=== PATIENT | female | born 1945 | race Caucasian/White ===

== ENCOUNTER → 2018-07-19 | Outpatient (CLI) | payer MEDICARE, OTHER ==
[~2018-07-19] MED LIST: BYDUREON P2 MG/0.65 SC; CALCIUM 500 +1 EAC2 PO; CINNAMON CAP PO; CLON.1 PO; COQ10-VIT E 101 EACH PO; CYCL10 PO; Cinnamon500 MG; ESTRADIOL; FURO20 PO; Fish Oil 10001000 MG PO; GLIM2 PO; GLYMET5 PO; HYDACE5325 PO; HYDACE7.5 PO; HYDCHL25 PO; HYDR-86 PO; LISI5 PO; LOSA50 PO; METF500 PO; MULTI-VITAMIN1 EACH PO; MULVITMIND PO; NAPR250 PO; NAPR500 PO; OMEG1CAP30 PO; OSTERA TABLET1 EACH PO; OXYACE5T PO; PIOG45 PO; POTCIT10 PO; PRAV20 PO; PROG100 PO; PROM25 PO; RXOXYACE PO; [UNRECOGNIZED DRUG - CODE] BOTHEYES
== END | disposition home or self-care (01) ==
LOC: LAB SHORT 08:11 → PLD 08:11
DX: Z01.812 Encounter for preprocedural laboratory examination (principal); D22.39 Melanocytic nevi of other parts of face; C43.9 Malignant melanoma of skin, unspecified; L57.0 Actinic keratosis
CPT/HCPCS: 88305

== ENCOUNTER 2021-04-13 08:17 | Day surgery (SDC) | payer OTHER ==
[~2021-04-13] VITALS: Ht 167.6 cm; Wt 100.9 kg
--- NOTE | 2021-04-13 09:05 | NUR ---
Ambulatory in [facility] warming gown applied. Patient states colon prep results clear. History, Chart, Medications and Allergies reviewed before start of procedure.Lungs clear T/O to Auscultation. Patient confirms NPO status and agrees with scheduled surgery. Pre-Op teaching done. Pt verbalizes understanding. Patient States Post-Procedure ride home has been arranged.
--- NOTE | 2021-04-13 09:33 | NUR ---
04/13/21 0933 Estrella García History, Chart, Medications and Allergies reviewed before start of procedure. Patient confirms NPO status and agrees with scheduled surgery. 3-LEAD EKG REVIEWED WITH PHYSICIAN PRIOR TO START OF PROCEDURE. MONITOR INTACT WITH CONTINUOUS PULSE OXIMETRY AND INTERMITTENT BP. PATIENT DETERMINED TO BE ASA APPROPRIATE FOR PROPOFOL SEDATION PRIOR TO START OF PROCEDURE BY DR. ROD.
--- NOTE | 2021-04-13 10:20 | NUR ---
PT ALERT AND ORIENTED, ABLE TO REPOSITION SELF IN BED. REQUESTING PO FLUIDS.
--- NOTE | 2021-04-13 10:38 | NUR ---
Discharge instructions reviewed with patient. Patient verbalizes understanding. Copy given to patient to take home.
--- NOTE | 2021-04-13 10:41 | NUR ---
PT STATES SHE TAKES MEDICATION FOR BLOOD PRESSURE AND DID NOT TAKE HER NORMAL AM DOSE TODAY
--- NOTE | 2021-04-13 10:42 | NUR ---
PT ADVISED TO TAKE BLOOD PRESSURE MEDICATION SOON SHE GETS HOME
--- NOTE | 2021-04-13 10:55 | NUR ---
Patient up to Ambulate independently. Gait steady. Discharge instructions reviewed with patient. Patient verbalizes understanding. Copy given to patient to take home. Patient States Post-Procedure ride home has been arranged. Discharged via wheelchair to private car for ride home. ALL BELONGINGS RETURNED TO PATIENT.
== END 2021-04-13 23:12 | disposition home or self-care (01) ==
LOC: ORSCMMR 08:17 → ORD 09:00 → ORSCMMR 09:00
PROVIDERS: Internal Medicine Gastroenterology
PROC: 0DBL8ZX Excision of Transverse Colon, Via Natural or Artificial Opening Endoscopic, Diagnostic (ICD-10-PCS; principal; 2021-04-13 09:00)
PROC: 0DBM8ZX Excision of Descending Colon, Via Natural or Artificial Opening Endoscopic, Diagnostic (ICD-10-PCS; principal; 2021-04-13 09:00)
DX: Z12.11 Encounter for screening for malignant neoplasm of colon (principal); Z80.0 Family history of malignant neoplasm of digestive organs; D12.3 Benign neoplasm of transverse colon; D12.4 Benign neoplasm of descending colon; E11.9 Type 2 diabetes mellitus without complications; I10 Essential (primary) hypertension; Z79.899 Other long term (current) drug therapy
CPT/HCPCS: 82947; 88305; J2704; J7120

== ENCOUNTER → 2021-06-02 | Outpatient (CLI) | payer OTHER | LOC: LAB SHORT 11:57 → LAB 11:57 → LAB FUT 05-26 13:40 | PROVIDERS: Internal Medicine Nephrology | DX: N18.30 Chronic kidney disease, stage 3 unspecified (principal); D63.1 Anemia in chronic kidney disease; N25.81 Secondary hyperparathyroidism of renal origin; E55.9 Vitamin D deficiency, unspecified; E78.00 Pure hypercholesterolemia, unspecified; R32 Unspecified urinary incontinence; R76.9 Abnormal immunological finding in serum, unspecified; R94.5 Abnormal results of liver function studies; R94.6 Abnormal results of thyroid function studies; D51.8 Other vitamin B12 deficiency anemias; D52.8 Other folate deficiency anemias; D50.9 Iron deficiency anemia, unspecified | CPT/HCPCS: 81050; 82043; 84156; 84300 ==

== ENCOUNTER 2025-03-20 08:42 | Day surgery (SDC) | payer OTHER ==
[~2025-03-20] VITALS: Ht 167.6 cm; Wt 85.9 kg
[2025-03-20] VITALS (19 sets, daily range): BP systolic 137–183; BP diastolic 62–100
[~2025-03-20 08:42] MED LIST changes: +ACET500 PO; -GLIM2 PO; +GLIM4 PO; +K-Dur10 MEQ PO; -LOSA50 PO; +LOSARTAN-HCTZ1 EAC6 PO; +OZEMPIC0.25 MG/02 SC; -POTCIT10 PO
[2025-03-20] MEDS ORDERED: CeFAZolin Sodium 2,000 MG in NS 100 ML IV SCH (10:15)
--- NOTE | 2025-03-20 11:00 | NUR ---
History, Chart, Medications and Allergies reviewed before start of procedure. Pre-Op teaching done. Pt verbalizes understanding. Patient confirms NPO status and agrees with scheduled surgery. PT REQUESTED TO LEAVE DENTURES IN PERSONAL DENTURE CUP AND PLACE IN BELONGINGS BAG. BELONGINGS BAG PLACED UNDER GURNEY. PT GLASSES PLACED IN LABELED ZIP LOCK AND PLACED IN PACU.
[2025-03-20] MEDS ORDERED: Rocuronium Bromide 10 MG/ML 5ML Injection IV ONE (11:18)
[2025-03-20] MEDS ORDERED: Bupivacaine 0.5% HCl 5 MG/ML 30MLVIAL ONE (11:51)
[2025-03-20] MEDS ORDERED: FentaNYL Citrate 50 MCG/ML 5 ML Injection ONE (12:09)
[2025-03-20] MEDS ORDERED: Metoclopramide HCl 5MG / ML 2ML Vial ONE ×2 (12:28→14:27)
[2025-03-20] MEDS ORDERED: Ondansetron HCl 2 MG / ML 2ML Vial ONE ×2 (12:28→14:26)
[2025-03-20] MEDS ORDERED: FentaNYL Citrate 50 MCG/ML 2 ML Injection IV PRN ×2 (13:35→13:40)
[2025-03-20] MEDS ORDERED: HYDROmorphone HCl/Pf 1MG SYR IV PRN (13:35)
[2025-03-20] MEDS ORDERED: Metoclopramide HCl 5MG / ML 2ML Vial IV PRN (13:40)
[2025-03-20] MEDS ORDERED: Morphine Sulfate 4 MG/1 ML Injection IV PRN (13:40)
[2025-03-20] MEDS ORDERED: Ondansetron HCl 2 MG / ML 2ML Vial IV PRN (13:40)
[2025-03-20] MEDS ORDERED: Sugammadex Sodium 200 MG/2ML SDV (100 MG/ML) ONE (13:46)
[2025-03-20] MEDS ORDERED: HYDROmorphone HCl/Pf 1MG SYR ONE (14:23)
[2025-03-20] MEDS ORDERED: DiphenhydrAMINE HCl 50 MG/ML 1ML Vial IV ONE (15:35)
[2025-03-20] MEDS ORDERED: Metoclopramide HCl 5MG / ML 2ML Vial IV ONE (16:40)
--- NOTE | 2025-03-20 18:10 | NUR ---
DISCHARGE NOTE PT A&OX4, BREATHING RA, VSS. PT NAUSEATED MAJORITY OF STEP DOWN RECOVERY DESPITE ANTI EMETIC MEDICATION GIVEN. PT HAD SEVERAL OCCURENCES OF EMESIS AND WAS UNABLE TO TOLERATE PO INTAKE. PT EXPRESSED PREFERENCE TO GO HOME DESPITE NAUSEA. CALL MADE TO DR LIVINGSTON TO UPDATE ON PT STATUS, DR LIVINGSTON OKAY WITH DISCHARGE TO HOME AND AN RX OF ZOFRAN WAS SENT TO HER PHARMACY. PT BEGAN TO IMPROVE SIGNIFICANTLY AFTER LAST DOSE OF REGLAN WAS GIVEN, ABLE TO TOLERATE SMALL SIPS OF WATER. PT UP TO RESTROOM AND VOIDED. PT STATES NAUSE HAS IMPROVED UPON DISCHARGE. MIKE WAS DRAINED AND 40CC EMPTIED T/O STEP STAY OF SS FLUID. INSTRUCTIONS FOR DRAIN CARE WERE SENT HOME WITH PT. BREAST BINDER IN PLACE. Discharge instructions reviewed with patient. Patient verbalizes understanding. Copy given to patient to take home.PT UP TO AMBULATE C WALKER. Dressing to procedure site clean, dry, intact with no visible drainage, swelling, erythema or bruising noted. Discharged via wheelchair to private car for ride home.
== END 2025-03-20 17:45 | disposition home or self-care (01) ==
LOC: ORSCMMR 08:42 → NM 10:00 → ORD 12:00 → ORSCMMR 17:45
PROVIDERS: Surgery
PROC: 07B60ZX Excision of Left Axillary Lymphatic, Open Approach, Diagnostic (ICD-10-PCS; principal; 2025-03-20 10:30)
PROC: 0HBU0ZZ Excision of Left Breast, Open Approach (ICD-10-PCS; principal; 2025-03-20 10:30)
DX: D05.12 Intraductal carcinoma in situ of left breast (principal); C77.3 Secondary and unspecified malignant neoplasm of axilla and upper limb lymph nodes; Z17.0 Estrogen receptor positive status [ER+]; Z17.21 Progesterone receptor positive status; Z17.32 Human epidermal growth factor receptor 2 negative status; E11.9 Type 2 diabetes mellitus without complications; I10 Essential (primary) hypertension; G47.33 Obstructive sleep apnea (adult) (pediatric); Z79.84 Long term (current) use of oral hypoglycemic drugs; Z79.899 Other long term (current) drug therapy; Z79.85 Long-term (current) use of injectable non-insulin antidiabetic drugs; E66.9 Obesity, unspecified; Z68.30 Body mass index [BMI] 30.0-30.9, adult
CPT/HCPCS: 38792; 82947; 88307; 88341; 88342; A9520; J0690; J1171; J1200; J2405; J2704; J2765; J3010; J7120; Q9968